=== PATIENT | male | born 1975 | race Two or more races ===

== ENCOUNTER → 2020-06-26 | Outpatient (CLI) | payer OTHER | END | disposition home or self-care (01) | LOC: OFIC 805 14:00 | PROVIDERS: ATTEND Otolaryngology | DX: G50.1 Atypical facial pain (principal); J32.8 Other chronic sinusitis; J33.8 Other polyp of sinus; R09.81 Nasal congestion ==

== ENCOUNTER 2020-07-24 09:13 | Outpatient (CLI) | payer OTHER | END 2020-07-24 10:20 | disposition home or self-care (01) | LOC: OFIC 805 09:13 | PROVIDERS: ATTEND Otolaryngology | DX: J33.8 Other polyp of sinus (principal); J32.8 Other chronic sinusitis; R09.81 Nasal congestion; G50.1 Atypical facial pain ==